=== PATIENT | female | born 1965 | race Caucasian/White ===

== ENCOUNTER → 2023-12-31 11:19 | Outpatient (REF) | payer OTHER, SELFPAY | LOC: HWWDC 11:19 | PROVIDERS: ATTENDING PHYSICIAN Nurse Practitioner Adult Health | DX: Z12.31 Encounter for screening mammogram for malignant neoplasm of breast (principal) | CPT/HCPCS: 77063; 77067 ==

== ENCOUNTER 2024-07-16 06:30 | Day surgery (SDC) | payer OTHER, SELFPAY ==
[2024-07-16 08:02] LABS: Glucose - Point of Care 133 mg/dl (70-99)
== END 2024-07-16 09:49 | disposition home or self-care (01) ==
LOC: GI 06:30
PROVIDERS: ATTENDING PHYSICIAN Internal Medicine
DX: Z12.11 Encounter for screening for malignant neoplasm of colon (principal); R19.5 Other fecal abnormalities; K64.9 Unspecified hemorrhoids; D12.2 Benign neoplasm of ascending colon; K63.5 Polyp of colon; K51.40 Inflammatory polyps of colon without complications
CPT/HCPCS: 45385; 45380; 88305; 82962

== ENCOUNTER → 2025-01-26 10:43 | Outpatient (REF) | payer OTHER, SELFPAY | LOC: HWWDC 10:43 | PROVIDERS: ATTENDING PHYSICIAN Nurse Practitioner Adult Health | DX: Z12.31 Encounter for screening mammogram for malignant neoplasm of breast (principal) | CPT/HCPCS: 77063; 77067 ==